=== PATIENT | female | born 1955 | race Caucasian/White ===

== ENCOUNTER 2021-09-10 09:24 | Outpatient (RCR) | payer OTHER | END 2021-09-15 | LOC: MKS.ESL.PT | DX: N39.3 Stress incontinence (female) (male) (principal) ==

== ENCOUNTER 2021-09-17 09:02 | Outpatient (RCR) | payer OTHER | END 2021-10-16 | LOC: MKS.ESL.PT | DX: N93.9 Abnormal uterine and vaginal bleeding, unspecified (principal) ==

== ENCOUNTER 2021-10-17 08:03 | Outpatient (RCR) | payer OTHER | END 2021-11-15 | LOC: MKS.ESL.PT | DX: N39.3 Stress incontinence (female) (male) (principal) ==

== ENCOUNTER 2021-11-07 08:30 | Outpatient (RCR) | payer OTHER | END 2021-11-15 | disposition home or self-care (01) | LOC: MKS.ESL.PT | DX: M53.3 Sacrococcygeal disorders, not elsewhere classified (principal) ==

== ENCOUNTER 2021-11-21 11:15 | Outpatient (RCR) | payer OTHER | END 2021-11-21 12:25 | disposition home or self-care (01) | LOC: MKS.ESL.PT 11:15 | DX: M35.3 Polymyalgia rheumatica (principal) ==

== ENCOUNTER → 2021-12-08 12:46 | Outpatient (RCR) | payer OTHER ==
[~2021-12-08 12:46] MED LIST: AMOXICILLIN 50500 MG PO; CELEBREX 200MG200 MG PO; CRESTOR 10MG10 MG PO; EFFEXOR 75M75 MG/TAB PO; FLAGYL500 MG; GLUCOPHAGE XR500 M1 PO; ROBAXIN 50500 MG/TAB PO; ROCEPHIN 2GM VIAL21 IJ; RYBELSUS7 MG PO; TAZTIA120 PO; VITAMIN D31000 IU PO
== END | disposition home or self-care (01) ==
LOC: MKS.ESL.PT 11-16 09:15
DX: N39.3 Stress incontinence (female) (male) (principal)

== ENCOUNTER 2022-01-10 21:03 | Emergency (ER) | payer OTHER ==
[~2022-01-10] VITALS: Ht 180.3 cm; Wt 109.1 kg
[2022-01-10 21:16] VITALS: TEMP 99
[2022-01-10 22:10] LABS: BASO # 0.1 K/mm3 (0.0-0.2); BASO % 0.5 % (0.0-2.0); EOS % 0.2 % (0.0-4.0); GRAN # 8.3 K/mm3 (1.4-6.5); GRAN % 81.3 % (42.2-75.2); HEMOGLOBIN 11.8 g/dl (12.5-16.0); MEAN CELL VOLUME 91 fl (80.0-100.0); MEAN CORPUSCULAR HEMOGLOBIN 29 pg (27-31); MEAN CORPUSCULAR HGB CONC 32 g/dl (33.0-37.0); MEAN PLATELET VOLUME 9.9 fl (7.4-10.4); MONO # 0.8 K/mm3 (0.1-0.6); MONO % 7.5 % (1.7-9.3); PLATELET COUNT 232 K/mm3 (130-400); RED BLOOD COUNT 4.05 M/mm3 (4.10-5.30)
[2022-01-10] MEDS ORDERED: AMOXICILLIN 50500 MG PO (22:17)
[2022-01-10] MEDS ORDERED: GLUCOPHAGE XR500 M1 PO (22:18)
[2022-01-10] MEDS ORDERED: TAZTIA120 PO (22:18)
[2022-01-10] MEDS ORDERED: CRESTOR 10MG10 MG PO (22:18)
[2022-01-10] MEDS ORDERED: VITAMIN D31000 IU PO (22:19)
[2022-01-10] MEDS ORDERED: EFFEXOR 75M75 MG/TAB PO (22:19)
[2022-01-10] MEDS ORDERED: CELEBREX 200MG200 MG PO (22:20)
[2022-01-10] MEDS ORDERED: ROBAXIN 50500 MG/TAB PO (22:20)
[2022-01-10] MEDS ORDERED: RYBELSUS7 MG PO (22:22)
[2022-01-10 22:23] LABS: HEMATOCRIT 36.9 % (37.0-47.0)
[2022-01-10 22:35] LABS: ALBUMIN 3.2 gm/dL (3.4-4.8); BILIRUBIN,TOTAL 0.9 mg/dL (0.2-1.2); CREATININE, serum 0.7 mg/dL (0.57-1.11); POTASSIUM 4.1 mmol/L (3.5-4.5); TOTAL PROTEIN 8.1 gm/dL (6.2-8.1)
[2022-01-10 22:40] LABS: C-REACTIVE PROTEIN 32.96 mg/dL (0.00-0.50)
[2022-01-11 01:50] VITALS: BP 158/85; PULSE 91
== END 2022-01-11 01:52 | disposition short-term general hospital (02) ==
LOC: COL.ER 21:03
PROVIDERS: Emergency Medicine
DX: K12.2 Cellulitis and abscess of mouth (principal)
CPT/HCPCS: J0295; J1885; J7030; Q9967

== ENCOUNTER 2022-01-23 08:00 | Outpatient (RCR) | payer OTHER ==
[2022-01-17 09:16] VITALS: BP 163/93; PULSE 86; TEMP 98.6
[2022-01-18 08:31] VITALS: BP 138/78; PULSE 79; TEMP 98.8
[2022-01-19 08:40] VITALS: BP 122/78; PULSE 71; TEMP 98.5
[2022-01-20 08:25] LABS: BASO % 0.4 % (0.0-2.0); EOS # 0.2 K/mm3 (0.0-0.7); EOS % 1.7 % (0.0-4.0); GRAN # 7.9 K/mm3 (1.4-6.5); GRAN % 77.5 % (42.2-75.2); HEMOGLOBIN 10.2 g/dl (12.5-16.0); LYMPH # 1.5 K/mm3 (1.2-3.4); LYMPH % 14.5 % (20.0-51.0); MEAN CELL VOLUME 91 fl (80.0-100.0); MEAN CORPUSCULAR HEMOGLOBIN 29 pg (27-31); MEAN CORPUSCULAR HGB CONC 32 g/dl (33.0-37.0); MEAN PLATELET VOLUME 8.8 fl (7.4-10.4); MONO # 0.5 K/mm3 (0.1-0.6); MONO % 5.2 % (1.7-9.3); PLATELET COUNT 321 K/mm3 (130-400); RED BLOOD COUNT 3.55 M/mm3 (4.10-5.30); REDCELL DISTRIBUTION WIDTH-CV 14.8 % (11.5-14.5)
[2022-01-20 08:28] LABS: HEMATOCRIT 32.3 % (37.0-47.0)
[2022-01-20 08:39] VITALS: BP 136/74; PULSE 87; TEMP 98.4
[2022-01-20 08:45] LABS: BILIRUBIN,TOTAL 0.4 mg/dL (0.2-1.2); C-REACTIVE PROTEIN 2.95 mg/dL (0.00-0.50); CALCIUM 9.6 mg/dL (8.4-10.2); CREATININE, serum 1.47 mg/dL (0.57-1.11); POTASSIUM 3.9 mmol/L (3.5-4.5); TOTAL PROTEIN 7.7 gm/dL (6.2-8.1)
[2022-01-21 08:56] VITALS: BP 147/82; PULSE 76; TEMP 99.3
[2022-01-22 08:52] VITALS: BP 130/71; PULSE 78; TEMP 98.4
[~2022-01-23] VITALS: Ht 180.3 cm; Wt 113.7 kg
[2022-01-23 08:41] VITALS: BP 102/68; PULSE 61; TEMP 98.8
--- NOTE | 2022-01-23 09:19 | NUR ---
Post midline removal instructions given to pt.Pt verbalizes understanding.Pt discharged via ambulatory.
== END 2022-01-23 09:20 ==
LOC: EUO 08:00
PROVIDERS: Physician Assistant Medical
DX: K12.2 Cellulitis and abscess of mouth (principal)
CPT/HCPCS: J0696

== ENCOUNTER 2022-09-09 08:36 | Day surgery (SDC) | payer OTHER ==
[~2022-09-09] VITALS: Ht 180.3 cm; Wt 108.6 kg
[2022-09-09 08:56] VITALS: BP 112/85; PULSE 79; TEMP 96.8
[2022-09-09] MEDS ORDERED: TYLENOL 500MG500 MG PO (09:02)
[2022-09-09 10:05] VITALS: BP 119/73; PULSE 65; TEMP 96.7
[2022-09-09 10:20] VITALS: BP 112/75; PULSE 68
[2022-09-09 10:35] VITALS: BP 103/81; PULSE 70
--- NOTE | 2022-09-09 10:50 | NUR ---
1005- PT RETURNS TO [facility] VIA CART. AWAKE AND ALERT. RESPIRATIONS UNLABORED. AMBULATES TO RECLINER WITH 2:1 SBA. DENIES NAUSEA OR ABDOMINAL PAIN. PT. HOOKED UP TO MONITOR, VS OBTAINED. CALL LIGHT AT SIDE. BS 78. 1016- PT. TOLERATES MUFFIN AND REGULAR SPRITE WITHOUT ANY NAUSEA. 1026- DR. BANERJEE IN ROOM SPEAKING WITH PATIENT. 1032- D/C INSTRUCTIONS REVIEWED. PT. VERBALIZES UNDERSTANDING. COPY PROVIDED IN D/C FOLDER. 1042- PT DRESSES SELF. 1045- BS RECHECKED AND HAD COME UP TO 101. 1050- PT. TAKEN TO SON'S CAR VIA W/C AND TRANSFERED TO CAR WITHOUT DIFFICULTY. PT. LEFT HOSIPTAL IN STABLE CONDITION.
== END 2022-09-09 10:50 | disposition home or self-care (01) ==
LOC: SDCO 08:36
DX: Z12.11 Encounter for screening for malignant neoplasm of colon (principal); D12.2 Benign neoplasm of ascending colon; K57.30 Diverticulosis of large intestine without perforation or abscess without bleeding; K62.89 Other specified diseases of anus and rectum; G47.33 Obstructive sleep apnea (adult) (pediatric); Z87.891 Personal history of nicotine dependence
CPT/HCPCS: J2704; J3010; J7120

== ENCOUNTER → 2022-09-22 | Outpatient (CLI) | payer OTHER ==
[~2022-09-22] MED LIST changes: +TYLENOL 500MG500 MG PO
== END ==
LOC: MC.RAD 08:30
DX: Z12.31 Encounter for screening mammogram for malignant neoplasm of breast (principal)